=== PATIENT | male | born 1990 | race Caucasian/White ===

== ENCOUNTER 2018-03-19 08:44 | Emergency (ER) | payer OTHER ==
[~2018-03-19] VITALS: Ht 182.9 cm; Wt 70.3 kg
[~2018-03-19 08:44] MED LIST: KEFLEX500 MG PO; NORCO 5-325 TA1 EACH PO
[2018-03-19] MEDS ORDERED: XANAX1 MG PO (08:53)
[2018-03-19] MEDS ORDERED: ZOLOFT100 MG PO (08:53)
[2018-03-19] MEDS ORDERED: AMBIEN 10 MG TA10 MG PO (08:53)
[2018-03-19] MEDS ORDERED: NORCO 5-325 TA1 EACH PO (10:40)
[2018-03-19] MEDS ORDERED: KEFLEX500 M1 PO (10:40)
[2018-03-19 10:57] VITALS: BP 144/67
== END 2018-03-19 10:59 | disposition home or self-care (01) ==
LOC: M.ERS 08:44
DX: S62.630A Displaced fracture of distal phalanx of right index finger, initial encounter for closed fracture (principal); S61.210A Laceration without foreign body of right index finger without damage to nail, initial encounter; W26.8XXA Contact with other sharp object(s), not elsewhere classified, initial encounter; Y93.89 Activity, other specified; Y92.89 Other specified places as the place of occurrence of the external cause; Y99.8 Other external cause status